=== PATIENT | male | born 1995 | race African-American/Black ===

== ENCOUNTER 2017-06-10 23:10 | Emergency (ER) | payer SELFPAY ==
--- NOTE | 2017-06-10 23:16 | EDM.PDOC ---
ED HPI GENERAL MEDICAL PROBLEM - General Chief Complaint: Lower Extremity Injury/Pain Stated Complaint: left knee pain Time Seen by Provider: 06/10/17 23:15 Source of Information: Reports: Patient History Limitations: Reports: No Limitations - History of Present Illness INITIAL COMMENTS - FREE TEXT/NARRATIVE: Patient slipped in shower tonight. Twisted left knee. Now has pain in the knee and cannot bear full weight on this leg. History of football injury to left knee that required ACL surgery a few years ago. Patient has own crutches and Donjoy brace which he utilized when coming to ER. No numbness/tingling in affected leg. Denies other injuries. Works at [employer]. Past medical history otherwise unremarkable. Left Knee Pain Score (Numeric/FACES): 6 - Related Data Allergies Allergy/AdvReac Type Severity Reaction Status Date / Time No Known Allergies Allergy Verified 06/10/17 23:16 Home Meds: Home Meds . [No Known Home Meds] 06/10/17 [History] Past Medical History - Past Surgical History Other Musculoskeletal Surgeries/Procedures:: ACL repair left knee Social & Family History - Family History Family Medical History: Noncontributory - Tobacco Use Smoking Status *Q: Never Smoker - Alcohol Use Alcohol Use History: No - Recreational Drug Use Recreational Drug Use: No Drug Use in Last 12 Months: No Review of Systems - Review of Systems Review Of Systems: ROS reveals no pertinent complaints other than HPI. ED EXAM, GENERAL - Physical Exam Exam: See Below Exam Limited By: No Limitations General Appearance: Alert, WD/WN, No Apparent Distress Eye Exam: Bilateral Eye: EOMI, PERRL Throat/Mouth: Normal Voice, No Airway Compromise Head: Atraumatic, Normocephalic Neck: Supple, Non-Tender Respiratory/Chest: No Respiratory Distress Cardiovascular: Normal Peripheral Pulses Peripheral Pulses: 2+: Dorsalis Pedis (L), Dorsalis Pedis (R) Extremities: Leg Pain (left knee), Other (mild diffuse tenderness over left anterior knee and MCL area, as well as peripatellar border. No significant laxity noted when testing ligaments, however pain limitation noted. NVI distal to injury. Has area of firmness and hyperpigmentation lateral joint line, not fixed in position. Scars noted from ). No: Joint Swelling Neurological: Alert, Oriented, Normal Cognition, No Motor/Sensory Deficits ( Able to flex/extend all joints and limbs, even affected left knee) Psychiatric: Normal Affect, Normal Mood Skin Exam: Warm, Dry, Intact, Normal Color. No: Increased Warmth Course - Vital Signs Last Recorded V/S: Last Vital Signs Temp 36.5 C 06/10/17 23:11 Pulse 55 L 06/10/17 23:11 Resp 20 06/10/17 23:11 BP 141/75 H 06/10/17 23:11 Pulse Ox 100 06/10/17 23:11 - Orders/Labs/Meds Orders: Active Orders 24 hr Category Date Time Status Knee 3V Lt [CR] Stat Exams 06/10/17 23:15 Taken - Radiology Interpretation Free Text/Narrative:: Xray shows evidence of previous ACL surgery. Several loose bodies noted, degenerative change, however no acute fracture identified. No previous films available for comparison. - Re-Assessments/Exams Free Text/Narrative Re-Assessment/Exam: 06/11/17 00:59 Given patient's complicated knee history, plan at this time is to have patient follow up with Ortho tomorrow for repeat exam and further work restrictions as needed. May need MRI if pain does not improve in timely fashion. He will continue to wear the brace and use crutches. Work excuse given to patient. He declined pain medication. Departure - Departure Time of Disposition: 23:46 Disposition: Home, Self-Care 01 Condition: Good Clinical Impression: Left knee injury Qualifiers: Encounter type: initial encounter Qualified Code(s): S89.92XA - Unspecified injury of left lower leg, initial encounter - Discharge Information Referrals: PCP,Unknown [Primary Care Provider] - Forms: ED Department Discharge Additional Instructions: Follow up tomorrow in [place] at [facility] walk[facility] for re-evaluation and additional treatment as needed. Ice/rest/elevate. Wear brace for comfort and support. - My Orders Last 24 Hours: My Active Orders 06/10/17 23:15 Knee 3V Lt [CR] Stat - Assessment/Plan Last 24 Hours: My Active Orders 06/10/17 23:15 Knee 3V Lt [CR] Stat
== END 2017-06-10 23:55 | disposition home or self-care (01) ==
LOC: LL.ED 23:10
DX: S89.92XA Unspecified injury of left lower leg, initial encounter (principal); Z98.890 Other specified postprocedural states; X50.1XXA Overexertion from prolonged static or awkward postures, initial encounter
CPT/HCPCS: 73562-LT; 99283